=== PATIENT | female | born 1975 | race Caucasian/White ===

== ENCOUNTER → 2016-03-01 | Outpatient (CLI) | payer BC ==
[~2016-03-01] MED LIST: LMC/150 PO; NITR-5 PO; PHEN-876 PO; PRENTAB26; QUET1TAB91 PO; SERT50TA PO
--- NOTE | 2016-03-01 14:21 | MAMMOGRAPHY REPORT ---
UNILATERAL RIGHT DIGITAL DIAGNOSTIC MAMMOGRAM TOMOSYNTHESIS WITH CAD AND RIGHT ULTRASOUND: 03/01/2016 CLINICAL HISTORY: 40-year-old woman presents for follow-up of a benign-appearing mass in the 8:30 ri ght breast. 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 TECHNIQUE: Breast tomosynthesis in addition to standard 2D mammography was performed. Current study was also evaluated with a Computer Aided Detection (CAD) system. COMPARISON: Comparison is made to exams dated: 06/25/2015 mammogram, 06/18/2015 ultrasound, 06/09/2015 mammogram, and 06/25/2015 ultrasound biopsy - [facility]. BREAST COMPOSITION: The tissue of the right breast is heterogeneously dense, which may obscure smal l masses. FINDINGS: There is a ribbon tiff metallic biopsy marker within a dominant 17 x 18 x 15 mm mass in th e 6:00 middle one third of the right breast. In the approximate 8:30 axis, an 11 x 11 x 12 mm circu mscribed mass is again seen, not significantly changed compared to the prior mammograms. There is a nother possible lobulated and circumscribed 15 mm mass in the far superior right breast, only seen o n the MLO view. Therefore, further evaluation with ultrasound was also performed superior right tiana ast and the remainder of the right breast to exclude the possibility of any other mammographically o ccult masses. No focal architectural distortion or new cluster of suspicious micro-calcifications a re seen. Real-time high-resolution sonographic evaluation was performed throughout the entire right breast in cluding the right axilla. The parenchymal echotexture is heterogeneousdense. No suspicious right axillary lymphadenopathy is seen. In the 8:30 breast, 3 cm from the nipple, a lobulated hypoechoic solid mass is again identified measuring 10.7 x 7.8 x 10.0 mm, previous measurements were 9.3 x 10.6 x 7.4 mm. In the 11:00 axis, 5 cm from the nipple, there is a hypoechoic parallel circumscribed lo bulated solid mass measuring 11.7 x 6.5 x 9.3 mm. A slightly larger lobulated and circumscribed hyp oechoic solid mass is identified in the 10:00 right breast, 5 cm from the nipple, measuring 11.0 x 8 .0 x 15.2 mm. A smaller lobulated hypoechoic solid-appearing mass is identified in the 7:00 right b reast, 4 cm from the nipple, measuring 4.4 x 4.3 x 5.9 mm. This could also represent a small cyst c luster. No other suspicious solid mass is seen throughout the right breast. IMPRESSION: ACR-BI-RADS CATEGORY 3: PROBABLY BENIGN, ULTRASOUND ACR-BI-RADS CATEGORY 3: PROBABLY BE NIGN 1. There are stable post biopsy changes involving a dominant mass in the 6:00 to 7:00 right breast. Another mass identified in the 8:30 axis is stable compared to a prior mammogram and ultrasound. However, there are newly visualized lobulated solid masses in the 10:00, 11:00 and 7:00 axes of the right breast. Although these most likely represent additional fibroadenomata given the similar appe arance to the biopsied masses in each breast, longer stability is needed. Another short interval fo llow-up right mammogram including tomosynthesis images with repeat targeted ultrasound in the 8:30, 10:00, 11:00 and 7:00 axes is recommended. 2. Annual left mammography will be due at the time of follow-up. Could also perform complete left breast ultrasound at that time as some of the masses seen within the right breast are mammographical ly occult. These results and recommendations were discussed with the patient at the time of the exam. She tenta tively scheduled a follow-up appointment prior to leaving our department. Approximately 10% of breast cancers are not detected with mammography. A negative mammographic repor t should not delay biopsy if a clinically suggestive mass is present. Amy Busby M.D. ay/:03/01/2016 14:11:50 Tile Grinder: Liya GONZALEZ(Erich)(Sebastien), [facility] letter sent: Follow Up Recommended 3 BI-RADS Code: ACR-BI-RADS Category 3: Probably Benign Ultrasound BI-RADS: ACR-BI-RADS Category 3: P robably Benign
== END | disposition home or self-care (01) ==
LOC: C.MAMM 08:21
PROVIDERS: ATTEND Obstetrics & Gynecology
DX: N63 Unspecified lump in breast (principal)

== ENCOUNTER → 2016-06-30 | Outpatient (CLI) | payer BC | END | disposition home or self-care (01) | LOC: C.PAPS 10:45 | PROVIDERS: ATTEND Obstetrics & Gynecology | DX: Z01.419 Encounter for gynecological examination (general) (routine) without abnormal findings (principal) ==

== ENCOUNTER 2016-07-09 06:52 | Emergency (ER) | payer BC ==
[~2016-07-09] VITALS: Ht 175.3 cm; Wt 79.2 kg
[~2016-07-09 06:52] MED LIST changes: -LMC/150 PO; -NITR-5 PO; -PHEN-876 PO; -QUET1TAB91 PO; -SERT50TA PO
[2016-07-09 07:03] VITALS: TEMP 36.7; Ht 175.3 cm; Wt 79.2 kg
--- NOTE | 2016-07-09 07:16 | EMERGENCY ROOM VISIT NOTE ---
ED Visit Note First contact with patient: 07:10 CHIEF COMPLAINT: Frequent and painful urination HISTORY OF PRESENT ILLNESS: This 40 old female presents to the emergency department ambulatory complaining of increased frequency of urination, burning pain with urination, and a feeling of incomplete voiding that started last night. The patient passes very small volumes of urine with each episode of voiding. The patient does not have abdominal pain. They deny back pain, fever , or vaginal discharge. The patient reports a remote history of urinary tract infection and states this feels similar. ct system dysfunction. Patient feels they are not at risk for STIs. She denies any vaginal bleeding or discharge. REVIEW OF SYSTEMS: A 6 system review of systems was completed with positives and pertinent negatives listed in the HPI. ALLERGIES: No known drug allergies MEDICATIONS: Lamictal, Zoloft, Seroquel PMH: Mood disorder SOCIAL HISTORY: The patient is a smoker. She lives locally PHYSICAL EXAM: Vital Signs: Reviewed Nurse's notes, vital signs stable. GENERAL : This is a 40-year-old female, in no acute distress, they do not appear toxic, well-developed, well-nourished. ABDOMEN: Positive bowel sounds x 4. The abdomen is soft, nontender, no masses or organs are felt. There is no CVA tenderness. The skin is clear. NEURO: Alert and oriented to person place and time. EMERGENCY DEPARTMENT COURSE: I examined the patient. Urinalysis suggests urinary tract infection and a culture is pending. The patient is afebrile. She does not have any nausea, vomiting or abdominal or back pain. I do not suspect pyelonephritis at this time. She will be placed on Macrobid and Pyridium. She should return with any worsening symptoms. The patient was discharged home in good condition. DIAGNOSIS: UTI DISCHARGE INSTRUCTIONS & TREATMENT: Increase fluids especially cranberry juice , Macrobid twice a day for 7 days. Pyridium 3 times a day as needed for discomfort. The Pyridium would turn your urine orange/red. Call in 36 hours if you are not improved to check culture results, and the appropriateness of the antibiotic therapy. Return with fevers, vomiting, back pain, abdominal pain Current/Historical Medications Scheduled Lamotrigine (Lamictal), 150 MG PO DAILY Nitrofurantoin Monohyd Macrocr (Macrobid), 100 MG PO BID Phenazopyridine HCl (Pyridium), 200 MG PO TID Quetiapine Fumarate (Seroquel), 0 PO DAILY Sertraline Hcl (Zoloft), 150 MG PO DAILY Allergies Coded Allergies: No Known Allergies (Verified , 07/09/16) Vital Signs Date Time Temp Pulse Resp B/P Pulse Ox O2 Delivery O2 Flow Rate FiO2 07/09/16 08:02 56 16 156/94 99 99 07/09/16 08:00 70 16 128/88 99 07/09/16 07:03 36.7 74 18 133/91 99 Room Air Laboratory Results Test 07/09/16 07:15 Urine Color YELLOW Urine Appearance CLEAR (CLEAR) Urine pH 5.5 (4.5-7.5) Urine Specific [place] 1.022 (1.000-1.030) Urine Protein NEG (NEG) Urine Glucose (UA) NEG (NEG) Urine Ketones NEG (NEG) Urine Occult Blood 1+ (NEG) Urine Nitrite NEG (NEG) Urine Bilirubin NEG (NEG) Urine Urobilinogen NEG (NEG) Urine Leukocyte Esterase MODERATE (NEG) Urine WBC (Auto) >30 /hpf (0-5) Urine RBC (Auto) 10-30 /hpf (0-4) Urine Hyaline Casts (Auto) >30 /lpf (0-5) Urine Epithelial Cells (Auto) 5-10 /lpf (0-5) Urine Bacteria (Auto) NEG (NEG) Urine Test NEG (NEG) Departure Information Impression Primary Impression: Urinary tract infection Dispostion Home / Self-Care Condition GOOD Prescriptions Phenazopyridine HCl (Pyridium) 200 Mg Tab 200 MG PO TID for 3 Days, #9 TAB Prov: Zoë Wheeler PA-C 07/09/16 Nitrofurantoin Monohyd Macrocr (Macrobid) 100 Mg Cap 100 MG PO BID for 7 Days, #14 CAP Prov: Zoë Wheeler PA-C 07/09/16 Referrals Pro,Gorge Clemens M.D. (PCP) Patient Instructions ED UTI Cystitis Female, My [facility] Additional Instructions Increase fluids especially cranberry juice, Macrobic twice a day for 7 days. Pyridium 3 times a day as needed for discomfort. The Pyridium would turn your urine orange/red. Call in 36 hours if you are not improved to check culture results, and the appropriateness of the antibiotic therapy. Return with fevers, vomiting, back pain, abdominal pain Problem Qualifiers Primary Impression: Urinary tract infection Urinary tract infection type: acute cystitis Hematuria presence: without hematuria Qualified Codes: N30.00 - Acute cystitis without hematuria
[2016-07-09 07:40] LABS: URINE APPEARANCE CLEAR (CLEAR); URINE BILIRUBIN NEG (NEG); URINE COLOR YELLOW; URINE NITRITE NEG (NEG); URINE PH 5.5 (4.5-7.5); URINE SPECIFIC GRAVITY 1.022 (1.000-1.030); UROBILINOGEN NEG (NEG); ZZUR CULT IF INDIC CLEAN CATCH YES
[2016-07-09] MEDS ORDERED: LMC/150 PO (07:41)
[2016-07-09] MEDS ORDERED: SERT50TA PO (07:41)
[2016-07-09] MEDS ORDERED: QUET1TAB91 PO (07:41)
[2016-07-09 07:43] LABS: MANUAL MICROSCOPIC REQUIRED? NO; REVIEW REQ? YES
[2016-07-09] MEDS ORDERED: PHEN-876 PO (07:45)
[2016-07-09] MEDS ORDERED: NITR-5 PO (07:45)
[2016-07-09 08:02] VITALS: BP 156/94; PULSE 56; O2SAT 99
== END 2016-07-09 08:01 | disposition home or self-care (01) ==
LOC: C.EDB 06:53
DX: N30.00 Acute cystitis without hematuria (principal); F39 Unspecified mood [affective] disorder; Z79.899 Other long term (current) drug therapy; Z87.440 Personal history of urinary (tract) infections

== ENCOUNTER → 2016-09-13 | Outpatient (CLI) | payer BC ==
[~2016-09-13] MED LIST changes: +LMC/150 PO; -PRENTAB26; +QUET1TAB91 PO; +SERT50TA PO
[2016-09-16 10:40] LABS: HERPES SIMPLEX CULT SOURCE OTHER-RECTAL; HERPES SIMPLEX VIRUS CULT ISOLATED (NOT ISOLATED)
[2016-09-16 16:57] LABS: HSVTYPE1REFLEX ONLY!DON'T ORDR ISOLATED (NOT ISOLATED); HSVTYPE2REFLEX ONLY!DON'T ORDR NOT ISOLATED (NOT ISOLATED)
== END | disposition home or self-care (01) ==
LOC: C.LABSPEC 17:33
PROVIDERS: ATTEND Physician Assistant
DX: R23.4 Changes in skin texture (principal)

== ENCOUNTER → 2016-10-12 | Outpatient (CLI) | payer BC ==
--- NOTE | 2016-10-12 14:15 | MAMMOGRAPHY REPORT ---
BILATERAL DIGITAL DIAGNOSTIC MAMMOGRAM TOMOSYNTHESIS WITH CAD AND TARGETED RIGHT ULTRASOUND: 7 CLINICAL HISTORY: History of ultrasound-guided core needle biopsies of a left 2:00 breast mass and ri ght 7:00 breast mass which yielded benign fibroadenomas. The patient is here for short interval foll ow-up of other right breast masses. The patient reports no current complaints. TECHNIQUE: Breast tomosynthesis in addition to standard 2D mammography was performed. Current study was also evaluated with a Computer Aided Detection (CAD) system. Bilateral CC and MLO 2-D and tomosy nthesis images were obtained. COMPARISON: Comparison is made to exams dated: 03/01/2016 ultrasound, 03/01/2016 mammogram, 06/25/2015 mammogram, 06/18/2015 ultrasound, and 06/09/2015 mammogram - [facility]. BREAST COMPOSITION: The tissue of both breasts is heterogeneously dense, which may obscure small mas ses. FINDINGS: Circumscribed 15 mm mass with an associated biopsy marker clip in the right breast at appr oximately 6 to 7:00 is not significantly changed. This was previously biopsied and yielded a benign fibroadenoma. Another circumscribed 14 mm mass in the right upper outer quadrant at approximately 9: 00 and a predominantly obscured mass in the right upper outer quadrant more superiorly are also not s ignificantly changed. A biopsy marker clip in the left upper outer quadrant is again noted. The rem ainder of both breasts are not significantly changed, without suspicious masses, calcifications, or a reas of architectural distortion noted. Targeted ultrasound was performed of the previously seen masses in the right breast. In the right br east at 7:00, 4 cm from the nipple, again noted is an oval circumscribed hypoechoic mass which measur es 1.6 x 0.9 x 1.5 cm. This was previously biopsied and yielded a benign fibroadenoma. In the right breast at 8:30, 4 cm from the nipple, again noted is a solid circumscribed hypoechoic mass which zuleyka sures 1.2 x 0.8 x 1.1 cm. This is not significantly changed compared to the June 2015 exam and is lik kathe benign and likely represents a fibroadenoma. In the right breast at 11:00, 5 cm from the nipple, again noted is an oval circumscribed hypoechoic solid mass which measures 1.3 x 0.6 x 0.8 cm. This is not significantly changed compared to the February 2016 exam and is probably benign and likely repr esents a fibroadenoma. A lobulated circumscribed hypoechoic mass is again noted in the right breast at 10:00, 5 cm from the nipple, which measures 1.5 x 0.9 x 1.4 cm. This is not significantly changed compared to the February 2016 exam when accounting for slight differences in measurement technique an d is probably benign and likely represents a fibroadenoma. A small hypoechoic mass measuring 6 x 6 x 4 mm in the right breast at 7:00, 4 cm from the nipple is also unchanged and is probably benign. Gi jorge alberto the history of biopsy-proven fibroadenomas bilaterally, these masses are probably benign and like ly represent fibroadenomas. IMPRESSION: ACR-BI-RADS CATEGORY 3: PROBABLY BENIGN, TARGETED ULTRASOUND ACR-BI-RADS CATEGORY 3: PRO BABLY BENIGN 1. Multiple hypoechoic similar-appearing masses in the right breast are stable compared to prior exam s and are probably benign and likely represent fibroadenomas. The right 8:30 breast mass is stable d ating back to the June 2015 exam and the right 7:00, 10:00, and 11:00 masses are stable dating back to the February 2016 exam. Recommend short interval follow-up diagnostic tomosynthesis mammograms and u ltrasound of the right breast in 6 months to confirm longer stability. 2. No mammographic evidence of malignancy in the left breast. The patient has been verbally notified of the results. Approximately 10% of breast cancers are not detected with mammography. A negative mammographic report should not delay biopsy if a clinically suggestive mass is present. Janett Dutton M.D. /:10/12/2016 09:56:59 Sample Collector: Liya GONZALEZ(Erich)(M), [facility] letter sent: Follow Up Recommended 3 BI-RADS Code: ACR-BI-RADS Category 3: Probably Benign Ultrasound BI-RADS: ACR-BI-RADS Category 3: Pr obably Benign
== END | disposition home or self-care (01) ==
LOC: C.MAMM 08:41
PROVIDERS: ATTEND Obstetrics & Gynecology
DX: R92.8 Other abnormal and inconclusive findings on diagnostic imaging of breast (principal); N63 Unspecified lump in breast

== ENCOUNTER → 2017-04-14 | Outpatient (CLI) | payer OTHER ==
--- NOTE | 2017-04-14 13:37 | MAMMOGRAPHY REPORT ---
UNILATERAL RIGHT DIGITAL DIAGNOSTIC MAMMOGRAM TOMOSYNTHESIS WITH CAD AND TARGETED RIGHT ULTRASOUND: CLINICAL HISTORY: The patient presents for short interval follow-up of right breast masses. History of ultrasound guided biopsy of a right 7:00 breast mass which yielded a benign fibroadenoma. The pat ient reports persistent tenderness at the site of the previously biopsied mass. TECHNIQUE: Breast tomosynthesis in addition to standard 2D mammography was performed. Current study was also evaluated with a Computer Aided Detection (CAD) system. Right CC and MLO and XCCL 2-D and t omosynthesis images were obtained. COMPARISON: Comparison is made to exams dated: 10/12/2016 ultrasound, 10/12/2016 mammogram, 03/01/2016 ultrasound, 03/01/2016 mammogram, 06/25/2015 ultrasound biopsy, and 06/25/2015 ultrasound biopsy - [facility]. BREAST COMPOSITION: The tissue of the right breast is heterogeneously dense, which may obscure small masses. FINDINGS: A square marker pelletier the site of pain pointed out by the patient in the right lower outer quadrant. Again noted is a circumscribed 16 mm mass within the right inferior breast, which contain s a biopsy marker clip and was previously biopsied and yielded a benign fibroadenoma. The mass is no t significantly changed mammographically compared to prior exams. Other circumscribed benign-appeari ng masses seen within the right breast do not appear significantly changed mammographically compared to the prior exam. The remainder of the right breast demonstrates no suspicious masses, calcificatio ns, or areas of architectural distortion. Targeted ultrasound was performed of the area of the previously seen right breast masses for which fo llow-up was recommended. In the right breast at 7:00, 4 cm from the nipple, again noted is an oval c ircumscribed hypoechoic solid mass which measures 16 x 10 x 15 mm. An echogenic biopsy marker clip i s seen within the mass. The mass is stable dating back to the June 2015 exam and was previously biops ied and yielded a benign fibroadenoma. The patient reported tenderness when scanning over this mass. In the right breast at 7:30, 4 cm from the nipple, again noted is a small hypoechoic circumscribed and parallel mass which measures 6 x 6 x 4 mm, unchanged compared to the September 2016 exam. In the ri ght breast at 8:30, 4 cm from the nipple, again noted is a hypoechoic circumscribed mass which measur es 11 x 12 x 9 mm also unchanged dating back to at least the February 2016 exam. In the right breast at 10:00, 5 cm from the nipple again noted is a lobulated circumscribed hypoechoic mass which measure s 15 x 9 x 15 mm, also unchanged dating back to the 2016 exam. In the right breast at 11:00, 5 cm fr om the nipple, again noted is a circumscribed hypoechoic mass which measures 12 x 6 x 8 mm, also unch anged dating back to the February 2016 exam. The masses are probably benign and likely represent fibr oadenomas. IMPRESSION: ACR-BI-RADS CATEGORY 3: PROBABLY BENIGN, TARGETED ULTRASOUND ACR-BI-RADS CATEGORY 3: PRO BABLY BENIGN Multiple hypoechoic benign-appearing masses in the right breast are stable compared to prior exams da ting back to at least February 2016 and are probably benign and likely represent fibroadenomas. Recom mend bilateral diagnostic tomosynthesis mammograms and possible targeted ultrasound of the right bravo st in 6 months, to reevaluate the right breast masses and for routine mammography of the left breast. The patient has been verbally notified of the results. Approximately 10% of breast cancers are not detected with mammography. A negative mammographic report should not delay biopsy if a clinically suggestive mass is present. Janett Dutton M.D. ah/:04/14/2017 11:51:09 Environmental Health Inspector: Lawanda Lennon, [facility] letter sent: Follow Up Recommended 3 BI-RADS Code: ACR-BI-RADS Category 3: Probably Benign Ultrasound BI-RADS: ACR-BI-RADS Category 3: Pr obably Benign
== END | disposition home or self-care (01) ==
LOC: C.MAMM 08:51
PROVIDERS: ATTEND Obstetrics & Gynecology
DX: R92.8 Other abnormal and inconclusive findings on diagnostic imaging of breast (principal); N63.10 Unspecified lump in the right breast, unspecified quadrant